=== PATIENT | male | born 1965 | race African-American/Black ===

== ENCOUNTER 2017-05-25 16:31 | Emergency (ER) | payer OTHER ==
[2017-05-25 16:35] VITALS: BMI 20.9
[2017-05-25 16:45] VITALS: BP 110/71; PULSE 80; TEMP 98.6
[2017-05-25] MEDS ORDERED: TETRACAINE 0.5% OPHTH SOLN 2 ML BOTTLE ONE (17:31)
[2017-05-25] MEDS ORDERED: FLUORESCEIN NA 1 EA STRIP ONE (17:31)
[2017-05-25] MEDS ORDERED: TETRACAINE 0.5% HCL 0.6ML DROPPER.BOTTLE OD ONE (17:31)
[2017-05-25] MEDS ORDERED: FLUORESCEIN NA 1 EA STRIP OD ONE (17:32)
--- NOTE | 2017-05-25 17:33 | PDOC ---
History of Present Illness - General History Source: Patient Exam Limitations: No Limitations - History of Present Illness Initial Comments: 05/25/17 17:37 The patient is a 51 year old male with no pertinent past medical history who presents to the ED with complaints of foreign body in his right eye. The patient states he was sawing wood at work and hit a nail when some material from what he was sawing got in his eye. He reports pain to his right eye but denies any change in vision. Denies any recent illness, fever, or chills. Denies N/V/D. <Heaven Alvarez - Last Filed: 05/25/17 17:37> <Michelle Salinas - Last Filed: 05/25/17 19:04> - General Chief Complaint: Eye Problem Stated Complaint: RIGHT EYE POSSIBLE FB Time Seen by Provider: 05/25/17 16:33 Past History <Heaven Alvarez - Last Filed: 05/25/17 17:37> - Past Medical History COPD: No - Suicide/Smoking/Psychosocial Hx Smoking History: Current every day smoker Number of Cigarettes Smoked Daily: 5 Information on smoking cessation initiated: Yes 'Breaking Loose' booklet given: 05/25/17 Hx Alcohol Use: Yes Drug/Substance Use Hx: No Substance Use Type: Alcohol <Michelle Salinas - Last Filed: 05/25/17 19:04> - Past Medical History Allergies/Adverse Reactions: Allergies Allergy/AdvReac Type Severity Reaction Status Date / Time No Known Allergies Allergy Verified 05/25/17 16:32 Home Medications: Ambulatory Orders NK [No Known Home Medication] 05/25/17 Review of Systems - Review of Systems Able to Perform ROS?: Yes Comments:: 05/25/17 17:37 CONSTITUTIONAL: Absent: fever, no chills, no fatigue EYES: Present: pain in R eye Absent: visual changes ENT: Absent: ear pain, no sore throat CARDIOVASCULAR: Absent: chest pain, no palpitations RESPIRATORY: Absent: cough, no SOB GI: Absent: abdominal pain, no nausea, no vomiting, no constipation, no diarrhea GENITOURINARY: Absent: dysuria, no frequency, no hematuria MUSKULOSKELETAL: Absent: back pain, no arthralgia, no myalgia SKIN: Absent: rash NEURO: Absent: headache All Other Systems: Reviewed and Negative <Heaven Alvarez - Last Filed: 05/25/17 17:37> *Physical Exam - Vital Signs Last Vital Signs Temp Pulse Resp BP Pulse Ox 98.6 F 80 15 110/71 100 05/25/17 16:31 05/25/17 16:31 05/25/17 16:31 05/25/17 16:31 05/25/17 16:31 <Heaven Alvarez - Last Filed: 05/25/17 17:37> - Vital Signs Last Vital Signs Temp Pulse Resp BP Pulse Ox 98.6 F 80 15 110/71 100 05/25/17 16:31 05/25/17 16:31 05/25/17 16:31 05/25/17 16:31 05/25/17 16:31 <Michelle Salinas - Last Filed: 05/25/17 19:04> ED Treatment Course - Medications Given in the ED: ED Medications Discontinued Medications Generic Name Dose Route Start Last Admin Trade Name Arnulfoq PRN Reason Stop Dose Admin Fluorescein Sodium 0 ea 05/25/17 17:32 05/25/17 17:35 Fluorets - OD 05/25/17 17:33 1 ea ONCE ONE Administration Tetracaine HCl 1 drop 05/25/17 17:31 05/25/17 17:35 Tetravisc 0.5% Eye Drops - OD 05/25/17 17:32 1 drop ONCE ONE Administration <Heaven Alvarez - Last Filed: 05/25/17 17:37> Medical Decision Making - Medical Decision Making 05/25/17 17:39 51 year old male who was at work cutting wood with power saw in which material got into his eye. Unsure if it was wood or metal. Reports pain to his right eye but denies visual changes. Will administer fluorescein and tetracaine. <Heaven Alvarez - Last Filed: 05/25/17 17:37> *DC/Admit/Observation/Transfer - Attestations Scribe Attestion: 05/25/17 17:43 Documentation prepared by Heaven Alvarez, acting as emergency medicine medical director for Michelle Salinas MD. <Heaven Alvarez - Last Filed: 05/25/17 17:37> - Discharge Dispostion Admit: No <Moucha,Remus S - Last Filed: 05/25/17 19:04> Diagnosis at time of Disposition: Eye foreign bodies Qualifiers: Encounter type: initial encounter Laterality: right Qualified Code(s): T15.91XA - Foreign body on external eye, part unspecified, right eye, initial encounter - Discharge Dispostion Disposition: HOME Condition at time of disposition: Stable - Referrals Referrals: Hayley Price MD [Staff Physician] - - Patient Instructions Printed Discharge Instructions: DI for Foreign Body in the Eye Additional Instructions: antibiotics drops 3 times a day wear eye protection
[2017-05-25] MEDS ORDERED: TOBRAMYCIN 0.3% OPHTH SOLN 5 ML BOTTLE OD ONE (19:00)
[2017-05-25] MEDS ORDERED: TOBRAMYCIN 0.3% OPHTH SOLN 5 ML BOTTLE ONE (19:04)
== END 2017-05-25 19:07 | disposition home or self-care (01) ==
LOC: FER 16:31
DX: T15.91XA Foreign body on external eye, part unspecified, right eye, initial encounter (principal); X58.XXXA Exposure to other specified factors, initial encounter; Y93.89 Activity, other specified; Y92.9 Unspecified place or not applicable; Y99.0 Civilian activity done for income or pay; F17.210 Nicotine dependence, cigarettes, uncomplicated
CPT/HCPCS: 99282-25